=== PATIENT | female | born 1990 | race Caucasian/White ===

== ENCOUNTER 2017-10-16 16:46 | Inpatient (IN) | payer OTHER ==
--- NOTE | 2017-10-16 16:52 | EDPHY ---
H & P Time Seen by Provider: 10/16/17 16:50 HPI/ROS: CHIEF COMPLAINT: Suicidality HISTORY OF PRESENT ILLNESS: The patient is a 27-year-old female with a history of schizophrenia who takes monthly injectable Abilify. Today she presented to her primary psychiatrist at [facility] who found her to be hallucinating with persecutory symptoms as well as suicidal. Her doctor there is Dr. Perez. He placed on an M1 hold and sent her to the ER. She denies recent fevers or illness. She denies any drug or alcohol ingestion. She states that she last had her Abilify injection yesterday. REVIEW OF SYSTEMS: Constitutional: denies: chills, fever, recent illness, recent injury EENTM: denies: blurred vision, double vision, nose congestion Respiratory: denies: cough, shortness of breath Cardiac: denies: chest pain, irregular heart rate, lightheadedness, palpitations Gastrointestinal/Abdominal: denies: abdominal pain, diarrhea, nausea, vomiting, blood streaked stools Genitourinary: denies: dysuria, frequency, hematuria, pain Musculoskeletal: denies: joint pain, muscle pain Skin: denies: lesions, rash, jaundice, bruising Neurological: denies: headache, numbness, paresthesia, tingling, dizziness, weakness Hematologic/Lymphatic: denies: blood clots, easy bleeding, easy bruising Immunologic/allergic: denies: HIV/AIDS, transplant EXAM: GENERAL: Well-appearing, obese and in no acute distress. HEAD: Atraumatic, normocephalic. EYES: Pupils equal round and reactive to light, extraocular movements intact, sclera anicteric, conjunctiva are normal. ENT: TMs normal, nares patent, oropharynx clear without exudates. Moist mucous membranes. NECK: Normal range of motion, supple without lymphadenopathy or JVD. LUNGS: Breath sounds clear to auscultation bilaterally and equal. No wheezes rales or rhonchi. HEART: Regular rate and rhythm without murmurs, rubs or gallops. ABDOMEN: Soft, nontender, normoactive bowel sounds. No guarding, no rebound. No masses appreciated. BACK: No CVA tenderness, no spinal tenderness, step-offs or deformities EXTREMITIES: Normal range of motion, no pitting or edema. No clubbing or cyanosis. NEUROLOGICAL: Cranial nerves II through XII grossly intact. Normal speech, normal gait. 5/5 strength, normal movement in all extremities, normal sensation PSYCH: Decreased affect, minimal responses to questions, A&O x3. SKIN: Warm, dry, normal turgor, no visible rashes or lesions. Source: Patient Exam Limitations: No limitations - Medical/Surgical History Hx Asthma: No Hx Chronic Respiratory Disease: No Hx Diabetes: No Hx Cardiac Disease: No Hx Renal Disease: No Hx Cirrhosis: No Hx Alcoholism: No Other PMH: Obesity, schizophrenia, suicidality - Family History Significant Family History: No pertinent family hx - Social History Alcohol Use: Sober Drug Use: None Constitutional: Initial Vital Signs Temperature (C) 37.0 C 10/16/17 16:45 Heart Rate 93 10/16/17 16:45 Respiratory Rate 20 10/16/17 16:45 Blood Pressure 131/98 H 10/16/17 16:45 O2 Sat (%) 95 10/16/17 16:45 O2 Delivery Mode Room Air Allergies/Adverse Reactions: latex Allergy (Verified 10/16/17 17:09) Home Medications: Medication Instructions Recorded ARIPiprazole [Abilify Maintena] 400 mg IM Q30D 10/16/17 Insulin Detemir [Levemir Flextouch] 32 unit SQ DAILY 10/16/17 Metformin HCl [Metformin 1000 mg] 1,000 mg PO BID 10/16/17 Prazosin HCl [Minipress 1mg (*)] 2 mg PO HS 10/16/17 Propranolol HCl [Inderal 20mg (*)] 20 mg PO BID 10/16/17 Venlafaxine HCl 100 mg PO DAILY 10/16/17 Venlafaxine HCl [Venlafaxine HCl 300 mg PO DAILY 10/16/17 ER] Medical Decision Making ED Course/Re-evaluation: 6:40 p.m. the patient is medically cleared for psychiatric evaluation. They will need to redo her hold because the one that was sent with her does not include her birthday. 7:45 p.m. the patient has been accepted at [address] [place] [address] Kramer. We will complete transfer paperwork. I have signed her new hold. Differential Diagnosis: Partial list of the Differential diagnosis considered include but were not limited to; depression, suicidality, schizophrenia and although unlikely based on the history and physical exam, I also considered infection, head injury, intoxication. - Data Points Laboratory Results: Laboratory Results 10/16/17 18:40 10/16/17 18:03 10/16/17 10/16/17 10/16/17 18:40 18:03 18:03 WBC 7.86 10^3/uL 10^3/uL (3.80-9.50) RBC 5.33 10^6/uL 10^6/uL (4.18-5.33) Hgb 11.5 g/dL L g/dL (12.6-16.3) Hct 38.0 % % (38.0-47.0) MCV 71.3 fL L fL (81.5-99.8) MCH 21.6 pg L pg (27.9-34.1) MCHC 30.3 g/dL L g/dL (32.4-36.7) RDW 16.4 % H % (11.5-15.2) Plt Count 250 10^3/uL 10^3/uL (150-400) MPV 11.0 fL fL (8.7-11.7) Neut % (Auto) 59.2 % % (39.3-74.2) Lymph % (Auto) 36.4 % % (15.0-45.0) Frederick % (Auto) 3.3 % L % (4.5-13.0) Eos % (Auto) 0.4 % L % (0.6-7.6) Baso % (Auto) 0.3 % % (0.3-1.7) Nucleat RBC Rel Count 0.0 % % (0.0-0.2) Absolute Neuts (auto) 4.66 10^3/uL 10^3/uL (1.70-6.50) Absolute Lymphs (auto) 2.86 10^3/uL 10^3/uL (1.00-3.00) Absolute Monos (auto) 0.26 10^3/uL L 10^3/uL (0.30-0.80) Absolute Eos (auto) 0.03 10^3/uL 10^3/uL (0.03-0.40) Absolute Basos (auto) 0.02 10^3/uL 10^3/uL (0.02-0.10) Absolute Nucleated RBC 0.00 10^3/uL 10^3/uL (0-0.01) Immature Gran % 0.4 % % (0.0-1.1) Immature Gran # 0.03 10^3/uL 10^3/uL (0.00-0.10) Sodium Potassium Chloride Carbon Dioxide Anion Gap BUN Creatinine Estimated GFR Glucose Calcium Beta HCG, Qual NEGATIVE Urine Opiates Screen NEGATIVE (NEGATIVE) Urine Barbiturates NEGATIVE (NEGATIVE) Ur Phencyclidine Scrn NEGATIVE (NEGATIVE) Ur Amphetamine Screen NEGATIVE (NEGATIVE) U Benzodiazepines Scrn NEGATIVE (NEGATIVE) Urine Cocaine Screen NEGATIVE (NEGATIVE) U Marijuana (THC) Screen NEGATIVE (NEGATIVE) Ethyl Alcohol 10/16/17 10/16/17 18:03 18:03 WBC REJ RBC Not Reported Hgb Not Reported Hct Not Reported MCV Not Reported MCH Not Reported MCHC Not Reported RDW SHIFTMAN Plt Count Not Reported MPV TNP Neut % (Auto) Not Reported Lymph % (Auto) Not Reported Frederick % (Auto) Not Reported Eos % (Auto) Not Reported Baso % (Auto) Not Reported Nucleat RBC Rel Count Not Reported Absolute Neuts (auto) Not Reported Absolute Lymphs (auto) Not Reported Absolute Monos (auto) Not Reported Absolute Eos (auto) Not Reported Absolute Basos (auto) Not Reported Absolute Nucleated RBC Not Reported Immature Gran % Not Reported Immature Gran # Not Reported Sodium 138 mEq/L mEq/L (135-145) Potassium 4.6 mEq/L mEq/L (3.5-5.2) Chloride 105 mEq/L mEq/L (97-110) Carbon Dioxide 19 mEq/l L mEq/l (22-31) Anion Gap 14 mEq/L mEq/L (8-16) BUN 8 mg/dL mg/dL (7-23) Creatinine 0.4 mg/dL L mg/dL (0.6-1.0) Estimated GFR > 60 Glucose 188 mg/dL H mg/dL (70-100) Calcium 8.5 mg/dL mg/dL (8.5-10.4) Beta HCG, Qual Urine Opiates Screen Urine Barbiturates Ur Phencyclidine Scrn Ur Amphetamine Screen U Benzodiazepines Scrn Urine Cocaine Screen U Marijuana (THC) Screen Ethyl Alcohol < 10 mg/dL mg/dL (0-10) Departure - Departure Disposition: [facility] IP Clinical Impression: Suicidal ideation Condition: Fair Referrals: Patient,NotPresent [Unknown] - As per Instructions
[2017-10-16 18:48] LABS: PLATELET COUNT 250 10^3/uL (150-400)
[2017-10-16] MEDS ORDERED: LORazepam 0.5 MG TAB PO PRN ×2 (22:53→23:07)
[2017-10-16] MEDS ORDERED: MAG HYDROX/AL HYDROX/SIMETH 30 ML UDCUP PO PRN (22:53)
[2017-10-16] MEDS ORDERED: NICOTINE POLACRILEX 2 MG GUM B PRN (22:53)
[2017-10-16] MEDS ORDERED: MAGNESIUM HYDROXIDE 30 ML UDCUP PO PRN (22:53)
[2017-10-16] MEDS ORDERED: OLANZapine DISINTEGR 10 MG TAB PO PRN (22:53)
[2017-10-16] MEDS ORDERED: ACETAMINOPHEN 325 MG TAB PO PRN (22:53)
[2017-10-16] MEDS ORDERED: MELATONIN 3 MG TAB PO PRN (22:57)
[2017-10-16] MEDS ORDERED: PRAZOSIN HCL 1 MG CAP PO SCH (23:05)
[2017-10-17 07:00] VITALS: BP 104/58
[2017-10-17] MEDS ORDERED: INSULIN REGULAR HUMAN 100 UNIT/ML UNIT SC SCH (07:30)
[2017-10-17] MEDS ORDERED: metFORMIN HCL 500 MG TAB PO SCH (08:00)
[2017-10-17] MEDS: INSULIN LISPRO 100 UNIT/ML SC SCH ×5 (08:12→12:12)
[2017-10-17] MEDS ORDERED: PROPRANOLOL HCL 20 MG TAB PO SCH (09:00)
[2017-10-17] MEDS ORDERED: VENLAFAXINE XR 75 MG CAP PO SCH (09:00)
[2017-10-17] MEDS ORDERED: NON-FORMULARY NEW DRUG (Metformin Hcl [Metformin 1000 Mg] 1,000 MG) PO SCH (09:00)
--- NOTE | 2017-10-17 13:23 | GCON ---
[f rep st] CONSULTATION INTERNAL MEDICINE CONSULTATION DATE OF CONSULTATION: 10/17/2017 REFERRING PHYSICIAN: Nguyen Suárez MD REASON FOR REFERRAL: Medical clearance for inpatient behavioral health stay. HISTORY OF PRESENT ILLNESS: This patient was referred to [facility] Emergency Department on an M1 hold from her primary psychiatrist at [facility] where she had gone for routine electroconvulsive therapy. She was hallucinating and had persecutory symptoms and suicidal ideation. She was evaluated by the mental health team and admitted for further psychiatric care. She currently is without any acute medical complaints. PAST MEDICAL HISTORY: 1. Schizophrenia. 2. Diabetes mellitus, type 2. 3. Iron-deficiency anemia. 4. Obesity. MEDICATIONS: 1. Aripiprazole 400 mg IM q.30 days. 2. Insulin detemir 32 units subcutaneous daily. 3. Metformin 1000 mg p.o. b.i.d. 4. Prazosin 2 mg p.o. q.h.s. 5. Propranolol 20 mg p.o. twice daily. 6. Venlafaxine. There were 2 doses listed, I am not sure if they were taken together or not, 100 mg p.o. daily and 300 mg p.o. daily. SOCIAL HISTORY: She lives with her sister who is her primary social support. She is a nonsmoker and does not use alcohol. She is not employed. She has completed approximately 2 years of college. FAMILY HISTORY: Noncontributory. REVIEW OF SYSTEMS: She reports that she snores, but she does awaken feeling refreshed. She says she has been losing some weight lately by walking more and says that she walks her dog. She is not in pain. She denies fevers or chills, cough or dyspnea, nausea, vomiting, constipation or diarrhea, dysuria, or urinary frequency, and otherwise a 10-point review of systems is negative. PHYSICAL EXAMINATION: VITAL SIGNS: Blood pressure is 105/58, heart rate is 105 , respiratory rate is 20, oxygen saturation is 95% on room air, temperature 36.5 degrees centigrade. GENERAL: This is a very obese woman, appears her chronologic age cooperative, and in no acute distress. HEENT: Extraocular movements are intact. Pupils are equal, round, reactive to light. Mucous membranes are moist. Dentition is in good condition. She has an uncrowded airway, Mallampati class 2. NECK: Supple. HEART: There is a regular rate and rhythm and rhythm with no murmurs, rubs, or gallops. LUNGS: Clear to auscultation bilaterally. ABDOMEN: Benign. EXTREMITIES: There is no cyanosis , clubbing, or edema. NEUROLOGIC: She is alert and oriented x3. Cranial nerves 2-12 are grossly intact. There is no focal weakness, and gait is within normal limits. LABORATORY DATA: CBC showed anemia with a hemoglobin of 11.5; hematocrit was normal at 38. She had a low MCV at 71.3, and she had a low mean cellular hemoglobin and mean cellular hemoglobin content. Her RDW was elevated at 16.4. Chemistry revealed a slightly low carbon dioxide of 19. She had a low creatinine at 0.4. Otherwise, renal function and electrolytes were within normal limits. Glucose was elevated yesterday evening at 188 and today at 248 and 196. Beta hCG was negative for . Toxicology screen in the urine was negative for any substances of abuse and in the serum was negative for ethyl alcohol. ASSESSMENT/RECOMMENDATIONS: 1. Mental health issues pending further evaluation and management per Psychiatry and the mental health team. 2. Morbid obesity. She reports that she has been losing weight. Encouraged to continue increased exercise. Advise caution regarding psychiatric medications which might cause further weight gain. 3. Diabetes mellitus, type 2. Blood sugars are elevated. If she is to be here short-term, would make no changes. If her stay is expected to last into weeks, might consider adding other non-insulin medications, such as exenatide if her insurance will cover it on an outpatient basis, which could help further weight loss, or sitagliptin, which is neutral regarding weight gain. Would hesitate to increase insulin due to likely increased weight gain that would follow. 4. Anemia with indices consistent with iron deficiency. She reports she was recently treated with iron for iron deficient anemia. Again if stay is to be brief, she can follow up with her primary care provider. If she is to be here for weeks, would reinitiate iron supplementation. Further evaluation would be per primary care in terms of seeking a source of blood and iron loss. She reports that she has an implanted control medication and does not have menstruation. I see no medical contraindications to this patient's continued stay on the inpatient behavioral health unit or to any psychiatric medications or procedures. Thank you very much for including me in the care of this patient and please do not hesitate to contact me or the hospitalist service should there be need for further medical evaluation. /[id number]/MODL MTDD
--- NOTE | 2017-10-17 16:19 | BAPA ---
[f rep st] ADMISSION PSYCHIATRIC ASSESSMENT REASON FOR ADMISSION: Patient is a 27-year-old female with history of bipolar disorder wit h chronic depression and suicidality. She was admitted from the emergency department after having be en brought in on an M1 hold placed by her primary outpatient psychiatrist, Dr. Lenka Mello. Patient apparently had been noncompliant with her medications and had been declining and began to have more pressing thoughts of suicide. I communicated with Dr. Mello who stated that he had placed the M1 an d expected that she would go to [facility] emergency department prior to admission to [facility] where he was treating her. Instead, they apparently were on divert and she came to [facility] ED and then was admitted to our service. He stated that her current care is in green sition with recent noncompliance and possible changes in her antidepressant regimen, as well as re-ev aluating the course of her ECT. It seemed only reasonable that, for continuity of care, she return t o [facility] where she could remain under his care. This was agreed to by myself, Dr. Mello, and the patient was actually relieved, saying that she would prefer that, given her existing relationship with Dr. Mello. PAST PSYCHIATRIC HISTORY: Significant for recent treatments with [facility] and Dr. Delgado ferreira including ECT. ALLERGIES: Latex. CURRENT MEDICATIONS: Abilify Maintena 400 mg every 30 days, Levemir insulin 32 units daily, Prazosin 2 mg at bedtime, Effexor XR 300 mg daily though patient apparently has not been taking this, metform in 1000 mg twice daily, and propranolol 20 mg twice daily. PAST MEDICAL HISTORY: Significant for diabetes, obesity. SOCIAL HISTORY: The patient lives with her sister. Does not use any substances. She is unmarried w ith no dependents. She states that she feels isolated as she has very little activities outside of he home. She has 2 years of college, is currently on disability income. She enjoys knitting. FAMILY HISTORY: Noncontributory. ADMISSION LABORATORY: CBC shows a hemoglobin low at 11.5, MCV down at 71.3. Blood glucose was 188 a nd then on repeat it was 248. Urine drug screen is negative for all substances. Beta hCG was negati ve. MENTAL STATUS EXAMINATION: An adequately groomed, obese white female, sitting in a chair in the day room. She is pleasant, cooperative, interactive, maintaining good eye contact and a calm and pleasan t demeanor. Her affect is blunted, stable, and appropriate. Her mood is described as "depressed." Thought process is linear and goal directed. Her thought content reveals no evidence of psychosis, t armando she has recently reported auditory hallucinations. She is alert and oriented to person, place, time, and situation. Her sensorium is clear. Her intellect appears to be average as evidenced by h er educational and occupational history, fund of knowledge, and vocabulary. Her insight and judgment appear to be fair to good. IMPRESSION: Schizoaffective disorder, depressed, chronic with acute exacerbation; increased suicidal ity; medication noncompliance; social isolation; chronic illness; recurrent illness. The patient is a 27-year-old female with history of schizoaffective disorder. She presents at this time depressed in the setting of medication noncompliance with increased suicidal ideation. It was somewhat of a mixup that she was admitted to our facility instead of [facility] and we will therefore transfer her back to [facility] due to the complexity of her case and her acute care needs. /[id number]/MODL
[2017-10-17] MEDS ORDERED: PRAZOSIN HCL 1 MG CAP PO SCH (21:00)
== END 2017-10-17 16:45 | DRG 885 ==
LOC: EDUNIT# → BBEH 22:15
PROVIDERS: ADMIT Psychiatry & Neurology Behavioral Neurology & Neuropsychiatry; ATTEND Psychiatry & Neurology Psychiatry
DX: F25.1 Schizoaffective disorder, depressive type (principal); E66.01 Morbid (severe) obesity due to excess calories; E11.9 Type 2 diabetes mellitus without complications; D50.9 Iron deficiency anemia, unspecified; Z68.42 Body mass index [BMI] 45.0-49.9, adult
CPT/HCPCS: 80305; G0480; J1815